=== PATIENT | male | born 1980 | race African-American/Black ===

== ENCOUNTER 2017-05-01 09:39 | Emergency (ER) | payer SELFPAY ==
[~2017-05-01] VITALS: Ht 188 cm; Wt 87.0 kg
[2017-05-01] MEDS ORDERED: LORazepam 2 MG/ML, 1ML ONE (09:57)
[2017-05-01] MEDS ORDERED: SODIUM CHLORIDE FLUSH 10ML SYR IVF ONE (10:00)
[2017-05-01] MEDS ORDERED: PLEASE ENTER HEIGHT AND WEIGHT MC SCH (10:00)
[2017-05-01] MEDS ORDERED: PLEASE ENTER ALLERGIES MC SCH ×2 (10:00)
[2017-05-01] MEDS ORDERED: LORazepam 2 MG/ML, 1ML IVPush ONE (10:00)
[2017-05-01 10:05] LABS: HEMATOCRIT 45.3 % (39.2-51.8); HEMOGLOBIN 15.4 g/dL (13.7-18.0); WHITE BLOOD COUNT 3.5 x10^3/uL (3.4-10)
[2017-05-01 10:17] LABS: BLOOD UREA NITROGEN 17 mg/dL (7-18)
[2017-05-01 10:18] LABS: ACETAMINOPHEN < 2 mcg/mL (10-30)
[2017-05-01 11:42] VITALS: BP 128/82
== END 2017-05-01 11:47 | disposition home or self-care (01) ==
LOC: ED 11:20
DX: R56.9 Unspecified convulsions (principal)
CPT/HCPCS: 36415; 70450; 80048; 80307; 80329; 82040; 82140; 83605; 85025; 85610; 93005; 96374; 99285; J2060; G0479; G0480